=== PATIENT | male | born 1965 | race Caucasian/White ===

== ENCOUNTER 2017-08-14 03:35 | Emergency (ER) | payer OTHER ==
--- NOTE | 2017-08-14 03:42 | CPEKG ---
Heart Rate: 82 RR Interval: 732 P-R Interval: 188 QRSD Interval: 104 QT Interval: 388 QTC Interval: 453 P [place]: 27 QRS [place]: 56 T Wave [place]: 6 EKG Severity - NORMAL ECG - EKG Impression: SINUS RHYTHM Electronically Signed By: Niru Fitzpatrick 14-Aug-2017 15:02:17
[2017-08-14] MEDS ORDERED: NS 1,000 ML IV ONE (03:46)
--- NOTE | 2017-08-14 03:50 | EDPHY ---
H & P Stated Complaint: "felt vibration in heart" Source: Patient, EMS - Personal History Current Tetanus/Diphtheria Vaccine: Unsure Current Tetanus Diphtheria and Acellular Pertussis (TDAP): Unsure - Medical/Surgical History Hx Asthma: No Hx Chronic Respiratory Disease: No Hx Diabetes: No Hx Cardiac Disease: No Hx Renal Disease: No Hx Cirrhosis: No Hx Alcoholism: No Hx HIV/AIDS: No Hx Splenectomy or Spleen Trauma: No Other PMH: kidney stone - Social History Smoking Status: Never smoked Time Seen by Provider: 08/14/17 03:47 HPI/ROS: HPI CHIEF COMPLAINT: Vibrating and chest and chest pressure HISTORY OF PRESENT ILLNESS: This patient very pleasant 51-year-old male he is otherwise healthy has a history of kidney stones he presents emergency room by EMS after he states that he was "dreaming and felt vibration in his chest" patient states that he initially thought it was a dream and then he woke up and felt vibrating in his chest. He asked his to check out his chest and listen for the vibrating his put her ear to his chest and heard vibration. This concerned them he states that he developed some pressure in his chest especially when he goes to lay down. When he lays flat he feels like he cannot take a deep breath in. This started at 2:00 a.m. It is now close to 4:00 a.m. In the emergency room. He called 911 after talking to a nurse hotline for discomfort in his chest. He reports that he cleaned out his garage today moved Dilaudid boxes and was sweeping out dirt and debris from his garage. Does complain of shortness of breath when he goes to lay flat. He denies any pleuritic pain. He became concerned with the sensation of something vibrating in his chest. His heard the vibration as well and this prompted a 911 call. Upon arrival to the emergency room the patient is resting comfortably he denies any further vibrating in his chest. He does report when he goes to lay flat here in the ER that he gets short of breath can't take a deep breath in. Patient was given full-dose aspirin by EMS. He denies any hemoptysis or pleuritic pain. Denies fever. Denies productive cough. Denies focal numbness or tingling. Past Medical History: Denies medical history except for kidney stones Past Surgical History: Denies significant surgical history Social History: Denies daily use of drugs alcohol tobacco. Family History: Denies any cardiac disease in his family ROS REVIEW OF SYSTEMS: A comprehensive 10 point review of systems is otherwise negative aside from elements mentioned in the history of present illness. Exam Constitutional appears well nontoxic no acute distress, vital signs stable at triage, triage nursing summary reviewed, vital signs reviewed, awake/alert. Eyes normal conjunctivae and sclera, EOMI, PERRLA. HENT normal inspection, atraumatic, moist mucus membranes, no epistaxis, neck supple/ no meningismus, no raccoon eyes. Respiratory clear to auscultation bilaterally, normal breath sounds, no respiratory distress, no wheezing. Cardiovascular rate normal, regular rhythm, no murmur, no edema, distal pulses normal. Gastrointestinal soft, non-tender, no rebound, no guarding, normal bowel sounds, no distension, no pulsatile mass. Genitourinary no CVA tenderness. Musculoskeletal no midline vertebral tenderness, full range of motion, no calf swelling, no tenderness of extremities, no meningismus, good pulses, neurovascularly intact. Skin pink, warm, & dry, no rash, skin atraumatic. Neurologic awake, alert and oriented x 3, AAOx3, moves all 4 extremities equally, motor intact, sensory intact, CN II-XII intact, normal cerebellar, normal vision, normal speech. Psychiatric normal mood/affect. Heme/Lymph/Immune no lymphadenopathy. Differential diagnosis includes but is not limited to: ACS, atypical chest pain , pneumothorax, pneumonia, pulmonary embolism, aortic dissection, congestive heart failure, tumor, musculoskeletal pain, esophageal pain, GERD, peptic ulcer disease, pancreatitis Medical Decision Making: Plan for this patient IV establishment with EKG, check troponin, full cafeteria monitor, chest x-ray two view, D-dimer, gentle IV hydration and re-evaluate. Re-evaluation: EKG interpretation by me on record in [facility] system. Impression time of EKG 3:40 a.m., this is sinus rhythm rate of 82 there is no acute ischemia no ST elevation no ST depression no significant T-wave abnormalities. No signs of cardiac arrhythmia. Unremarkable EKG. 0618: Further discussion with the patient he states when he breathes in with deep inspiration he has some chest discomfort. Describes as sharp across his chest. It is reproducible every time he takes deep breath in or goes to lay flat. His blood work has been reassuring and reviewed. He has a negative troponin nonischemic EKG. After further discussion with the patient he reports that he hung the tire rack in his garage for the past 2 days worked on applying himself yesterday caring multiple 40 lb tires and placing them on the rack above his garage. He had to climb a ladder to do this. He additionally states that he placed spare tires as well. This was a lot of vigorous activity with him. He did not feel any chest pain or shortness at that time. However tonight he woke up with this discomfort. When I palpate his chest he does not have any significant tenderness or crepitus. However given that his troponin is normal on EKG is nonischemic negative D-dimer , chest x-ray is unremarkable without any acute cardiopulmonary disease. He still having pleuritic pain reproducible over time takes deep breath in. We discussed risk versus benefit about CT angiogram of his chest. He would like to do the CT angiogram of chest to make sure there is not any evidence of significant chest wall injury inflammation or PE. Additionally I will order him IV Toradol to see if this improves his discomfort. If the Toradol improved his pain in the CT scan is negative I feel like he can go home. I will plan on repeat EKG repeat troponin at 7:00 a.m.. If these are normal and he feels better I believe he can go home. Most likely cause of chest pain is musculoskeletal nature. CT angiogram of the chest for rule out pulmonary embolism are normal thorax or focal pneumonia is negative. No PE no pneumonia no pneumothorax. Called to me by Dr. Silva. 0653: Patient resting comfortably. Dr. Niru Fitzpatrick follow-up repeat troponin. If repeat troponin is negative patient be discharged home. This is unlikely to be acute coronary syndrome with 2-troponins and [address] angiogram of the chest shows no PE. Most likely this is musculoskeletal chest wall pain from extensive use of moving tires. Return precautions discussed with the patient. EKG interpretation by me on record in [facility] system. Impression this is a repeat EKG time of repeat EKG 6:50 a.m. This is sinus rhythm rate of 71 this is unchanged from the previous EKG with no acute ischemia. No ST elevation no ST depression. Very similar morphology to the previous EKG. Repeat troponin is pending. Dr. Niru Fitzpatrick follow up repeat troponin and reassess patient. (Clarence Cagle) Constitutional: Initial Vital Signs Temperature (C) 36.7 C 08/14/17 03:37 Heart Rate 77 08/14/17 03:37 Respiratory Rate 16 08/14/17 03:37 Blood Pressure 138/102 H 08/14/17 03:37 O2 Sat (%) 92 08/14/17 03:37 O2 Delivery Mode Room Air O2 (L/minute) 2 Allergies/Adverse Reactions: No Known Allergies Allergy (Unverified 08/14/17 04:18) Home Medications: Medication Instructions Recorded Ibuprofen [Motrin (*)] 800 mg PO Q6-8PRN #10 tab 08/14/17 Medical Decision Making ED Course/Re-evaluation: Repeat troponin is normal. I reviewed the EKGs and both EKGs are normal. Heart Score is 1 (for age). HPI reviewed with pt; suggests musculoskeletal etiology. I feel this patient is a safe and stable for discharge home. He will follow up with Cardiology as an outpatient. Chest pain precautions given. (Niru Fitzpatrick) Differential Diagnosis: Differential diagnosis includes though it is not limited to pneumonia, pneumothorax, pulmonary embolism, aortic dissection, pericarditis, acute coronary syndrome. (Niru Fitzpatrick) - Data Points Laboratory Results: Laboratory Results 08/14/17 03:45 08/14/17 03:45 08/14/17 08/14/17 08/14/17 06:58 03:45 03:45 WBC RBC Hgb Hct MCV MCH MCHC RDW Plt Count MPV Neut % (Auto) Lymph % (Auto) [place] % (Auto) Eos % (Auto) Baso % (Auto) Nucleat RBC Rel Count Absolute Neuts (auto) Absolute Lymphs (auto) Absolute Monos (auto) Absolute Eos (auto) Absolute Basos (auto) Absolute Nucleated RBC Immature Gran % Immature Gran # PT 13.1 SEC SEC (12.0-15.0) INR 0.97 (0.83-1.16) APTT 30.7 SEC SEC (23.0-38.0) D-Dimer < 0.27 ug/mLFEU ug/mLFEU (0.00-0.50) Sodium 141 mEq/L mEq/L (135-145) Potassium 3.8 mEq/L mEq/L (3.3-5.0) Chloride 96 mEq/L L mEq/L (97-110) Carbon Dioxide 31 mEq/l mEq/l (22-31) Anion Gap 14 mEq/L mEq/L (8-16) BUN 18 mg/dL mg/dL (7-23) Creatinine 1.1 mg/dL mg/dL (0.7-1.3) Estimated GFR > 60 Glucose 101 mg/dL H mg/dL (70-100) Calcium 9.1 mg/dL mg/dL (8.5-10.4) Magnesium 2.0 mg/dL mg/dL (1.6-2.3) Total Bilirubin 1.4 mg/dL mg/dL (0.1-1.4) Conjugated Bilirubin 0.4 mg/dL mg/dL (0.0-0.5) Unconjugated Bilirubin 1.0 mg/dL mg/dL (0.0-1.1) AST 30 IU/L IU/L (17-59) ALT 42 IU/L IU/L (21-72) Alkaline Phosphatase 47 IU/L IU/L (38-126) Creatine Kinase 118 IU/L IU/L (0-224) CK-MB (CK-2) Fraction 1.33 ng/mL ng/mL (0.00-3.19) Troponin I < 0.012 ng/mL ng/mL < 0.012 ng/mL ng/mL (0.000-0.034) (0.000-0.034) NT-Pro-B Natriuret Pep 24 pg/mL pg/mL (0-125) Total Protein 7.6 g/dL g/dL (6.3-8.2) Albumin 4.4 g/dL g/dL (3.5-5.0) Lipase 103 IU/L IU/L (23-300) 08/14/17 03:45 WBC 6.50 10^3/uL 10^3/uL (3.80-9.50) RBC 5.49 10^6/uL 10^6/uL (4.40-6.38) Hgb 16.4 g/dL g/dL (13.7-17.5) Hct 47.2 % % (40.0-51.0) MCV 86.0 fL fL (81.5-99.8) MCH 29.9 pg pg (27.9-34.1) MCHC 34.7 g/dL g/dL (32.4-36.7) RDW 12.6 % % (11.5-15.2) Plt Count 198 10^3/uL 10^3/uL (150-400) MPV 10.3 fL fL (8.7-11.7) Neut % (Auto) 50.1 % % (39.3-74.2) Lymph % (Auto) 37.8 % % (15.0-45.0) [place] % (Auto) 9.2 % % (4.5-13.0) Eos % (Auto) 2.2 % % (0.6-7.6) Baso % (Auto) 0.5 % % (0.3-1.7) Nucleat RBC Rel Count 0.0 % % (0.0-0.2) Absolute Neuts (auto) 3.26 10^3/uL 10^3/uL (1.70-6.50) Absolute Lymphs (auto) 2.46 10^3/uL 10^3/uL (1.00-3.00) Absolute Monos (auto) 0.60 10^3/uL 10^3/uL (0.30-0.80) Absolute Eos (auto) 0.14 10^3/uL 10^3/uL (0.03-0.40) Absolute Basos (auto) 0.03 10^3/uL 10^3/uL (0.02-0.10) Absolute Nucleated RBC 0.00 10^3/uL 10^3/uL (0-0.01) Immature Gran % 0.2 % % (0.0-1.1) Immature Gran # 0.01 10^3/uL 10^3/uL (0.00-0.10) PT INR APTT D-Dimer Sodium Potassium Chloride Carbon Dioxide Anion Gap BUN Creatinine Estimated GFR Glucose Calcium Magnesium Total Bilirubin Conjugated Bilirubin Unconjugated Bilirubin AST ALT Alkaline Phosphatase Creatine Kinase CK-MB (CK-2) Fraction Troponin I NT-Pro-B Natriuret Pep Total Protein Albumin Lipase Medications Given: Discontinued Medications Sodium Chloride (Ns) 1,000 mls @ 0 mls/hr IV EDNOW ONE; Wide Open PRN Reason: Protocol Stop: 08/14/17 03:47 Last Admin: 08/14/17 04:18 Dose: 1,000 mls Ketorolac Tromethamine (Toradol) 15 mg IVP ONCE ONE Stop: 08/14/17 06:18 Last Admin: 08/14/17 06:26 Dose: 15 mg Departure - Departure Disposition: Home, Routine, Self-Care Clinical Impression: Pleurisy Chest wall muscle strain Qualifiers: Encounter type: initial encounter Qualified Code(s): S29.011A - Strain of muscle and tendon of front wall of thorax, initial encounter Condition: Good Instructions: Pleurisy (ED), Chest Wall Pain (ED) Additional Instructions: 1. Based upon the testing done in the Emergency Department today we see no evidence of a heart attack. 2. We are unable to fully exclude coronary artery disease based upon the testing available in the Emergency Department. 3. For this reason, we would like you to be seen by cardiology for consideration of additional testing within the next week. 4. Please contact the retail store clerk you have been referred to schedule this appointment. Their offices are typically open from 8:30am-5pm M-F. 5. Please return to the Emergency Department immediately for any recurrent chest pain, difficulty breathing or other concerns. Referrals: Malcolm Meraz MD [Medical Doctor] - As per Instructions Prescriptions: Ibuprofen [Motrin (*)] 800 mg PO Q6-8PRN #10 tab
[2017-08-14 03:54] LABS: PLATELET COUNT 198 10^3/uL (150-400)
[2017-08-14 04:03] LABS: INR 0.97 (0.83-1.16); PROTIME(PATIENT) 13.1 SEC (12.0-15.0)
[2017-08-14 04:06] LABS: CREATINE KINASE 118 IU/L (0-224)
[2017-08-14] MEDS ORDERED: KETOROLAC 15 MG/1 ML SDV IVP ONE (06:17)
[2017-08-14] MEDS ORDERED: IOPAMIDOL (ISOVUE 370) 100 ML BTL IV ONE (06:22)
--- NOTE | 2017-08-14 07:00 | CPEKG ---
Heart Rate: 71 RR Interval: 845 P-R Interval: 188 QRSD Interval: 102 QT Interval: 400 QTC Interval: 435 P [place]: 18 QRS [place]: 49 T Wave [place]: 12 EKG Severity - NORMAL ECG - EKG Impression: SINUS RHYTHM Electronically Signed By: Niru Fitzpatrick 14-Aug-2017 15:02:09
[2017-08-14 07:56] VITALS: BP 129/91
== END 2017-08-14 08:08 | disposition home or self-care (01) ==
LOC: EDUNIT#
DX: S29.011A Strain of muscle and tendon of front wall of thorax, initial encounter (principal); R09.1 Pleurisy; E86.9 Volume depletion, unspecified; X58.XXXA Exposure to other specified factors, initial encounter; Y99.8 Other external cause status
CPT/HCPCS: 96374; J1885; Q9967